=== PATIENT | female | born 1995 | race Caucasian/White ===

== ENCOUNTER 2018-01-06 06:44 | Inpatient (IN) | payer BC, OTHER ==
[~2018-01-06] VITALS: Ht 154.9 cm; Wt 79.0 kg
[~2018-01-06 06:44] MED LIST: AMBIEN10 MG PO
--- NOTE | 2018-01-07 08:42 | PR ---
[facility] [address] [facility] [place], [place] [address] Signed PP Progress Notes Datetime Report Generated by CPN: 01/07/2018 08:41 SUBJECTIVE: [id number] Pain: Within normal limits Nausea/Vomiting: Denies Bowel Movement: Yes Vital Signs: [id number] Vital Signs: Reviewed; Within Normal Limits EXAM: [id number] Cardiovascular: Not Done Respiratory: Not Done Abdomen/Uterus: Abnormal Lochia: Normal Vulva/Perineum: Not Done Breasts: Not Done CVA Tenderness: Not Done Extremities: Normal Incision: Not Applicable Progress: Normal Exam Comments: Fundus firm, NT @ U-1. H/H 11.6/35, WBC 14.7, plat 228k IMPRESSION/PLAN/PROCEDURES: [id number] Impression: Normal progression Plan: Continue present management Progress Notes: Doing well. Will continue current care. Signing Physician: Viji Diggs MD Copies: ~ *Electronically Signed* 01/07/18 0841 VIJI DIGGS MD PATIENT NAME: ERICKA WOODS PROGRESS NOTE DATE OF : [birth year] PHYSICIAN: VIJI DIGGS MD RPT #: [id number] REPORT IS CONFIDENTIAL AND NOT TO BE RELEASED WITHOUT AUTHORIZATION
--- NOTE | 2018-01-08 08:44 | PR ---
[facility] [address] [facility] [place], [place] [address] Signed PP Progress Notes Datetime Report Generated by CPN: 01/08/2018 08:43 SUBJECTIVE: [id number] Pain: Within normal limits Nausea/Vomiting: Denies Bowel Movement: Yes Vital Signs: [id number] Vital Signs: Reviewed; Within Normal Limits EXAM: [id number] Cardiovascular: Not Done Respiratory: Not Done Abdomen/Uterus: Abnormal Lochia: Normal Vulva/Perineum: Not Done Breasts: Not Done CVA Tenderness: Not Done Extremities: Normal Incision: Not Applicable Progress: Normal Exam Comments: Fundus firm, NT @ U-1. IMPRESSION/PLAN/PROCEDURES: [id number] Impression: Normal progression Plan: Discharge Procedures: None Progress Notes: Doing well. She is ready for D/C. Signing Physician: Viji Diggs MD Copies: ~ *Electronically Signed* 01/08/18 0843 VIJI DIGGS MD PATIENT NAME: ERICKA WOODS PROGRESS NOTE DATE OF : [birth year] PHYSICIAN: VIJI DIGGS MD RPT #: [id number] REPORT IS CONFIDENTIAL AND NOT TO BE RELEASED WITHOUT AUTHORIZATION
== END 2018-01-08 13:45 | disposition home or self-care (01) | DRG 775 ==
LOC: FBC 08:10
PROVIDERS: ADMIT Obstetrics & Gynecology
PROC: 10E0XZZ Delivery of Products of Conception, External Approach (ICD-10-PCS; principal; 2018-01-06)
PROC: 0UQMXZZ Repair Vulva, External Approach (ICD-10-PCS; 2018-01-06)
PROC: 10907ZC Drainage of Amniotic Fluid, Therapeutic from Products of Conception, Via Natural or Artificial Opening (ICD-10-PCS; 2018-01-06)
PROC: 3E0S3BZ Introduction of Anesthetic Agent into Epidural Space, Percutaneous Approach (ICD-10-PCS; 2018-01-06)
PROC: 00HU33Z Insertion of Infusion Device into Spinal Canal, Percutaneous Approach (ICD-10-PCS; 2018-01-06)
DX: O43.113 Circumvallate placenta, third trimester (principal); O69.81X0 Labor and delivery complicated by cord around neck, without compression, not applicable or unspecified; O70.0 First degree perineal laceration during delivery; Z3A.39 39 weeks gestation of pregnancy; Z37.0 Single live birth
CPT/HCPCS: 01960; 85027; J2590; J2795; J7120

== ENCOUNTER 2020-10-09 19:30 | Emergency (ER) | payer BC, OTHER ==
[~2020-10-09] VITALS: Ht 154.9 cm; Wt 78.0 kg
[~2020-10-09 19:30] MED LIST changes: +IBUPROFEN600 MG PO; +MONO-LINYAH1 EACH PO; +OXYCODON-ACETA1 EAC2 PO; +TYLENOL325 MG PO; +VENLAFAXINE HCL75 M1 PO
[2020-10-10] MEDS ORDERED: MACROBID 100 M100 MG PO (00:11)
--- NOTE | 2020-10-10 03:16 | EKG ---
[facility] [address] [facility] [place], [place] [address] Signed Sinus rhythm with marked sinus arrhythmia Otherwise normal ECG No previous ECGs available Confirmed by HEDY BREAUX MD ([id number]) on 10/10/2020 3:16:08 AM Electronically Signed By: HEDY BREAUX MD 10/10/20 0316 PATIENT NAME: ERICKA WOODS Electrocardiogram DATE OF : [birth year] PHYSICIAN: HEDY BREAUX MD REPORT #: [id number] REPORT IS CONFIDENTIAL AND NOT TO BE RELEASED WITHOUT AUTHORIZATION
== END 2020-10-10 00:35 | disposition home or self-care (01) ==
LOC: ED 19:30
DX: N39.0 Urinary tract infection, site not specified (principal); Z91.040 Latex allergy status
CPT/HCPCS: 51798; 71045; 81001; 84703; 87077; 87088; 87186; 93005; 93010; 99284-25; A9270

== ENCOUNTER 2024-01-22 05:43 | Day surgery (SDC) | payer OTHER ==
[2024-01-15 11:51] VITALS: BP 125/71
[~2024-01-22] VITALS: Ht 154.9 cm; Wt 59.5 kg
[~2024-01-22 05:43] MED LIST changes: +HYDRALAZINE HCL25 MG PO; +LACTATED RINGER'S 1,000 ML IV SCH; +MACROBID 100 M100 MG PO
[2024-01-22 06:02] VITALS: BP 141/79
[2024-01-22] MEDS ORDERED: LIDOCAINE HCL 1% 5 ML SDV INJ ONE (07:00)
[2024-01-22] MEDS ORDERED: IBLOOD GLUCOSE TEST STRIP 1 EA TEST VI PRN ×2 (07:00→08:45)
[2024-01-22] MEDS ORDERED: fentaNYL citrate 100 MCG/2 ML VIAL ONE (07:20)
[2024-01-22] MEDS ORDERED: KETAMINE in NS 50 MG/5 ML SYR ONE (07:20)
[2024-01-22] MEDS ORDERED: ACETAMINOPHEN 1,000 MG/100 ML VIAL ONE (07:21)
[2024-01-22] MEDS ORDERED: DEXAMETHASONE SOD PHOS 4 MG/ML VIAL ONE (07:21)
[2024-01-22] MEDS ORDERED: LIDOCAINE HCL 2% 5 ML SDV ONE (07:21)
[2024-01-22] MEDS ORDERED: dexmedeTOMIDine HCl 200 MCG/2 ML VIAL ONE (07:21)
[2024-01-22] MEDS ORDERED: propofoL 200 MG/20 ML VIAL ONE (07:21)
[2024-01-22] MEDS ORDERED: MAGNESIUM SULFATE 1 GM/2 ML VIAL ONE (07:21)
[2024-01-22] MEDS ORDERED: ondansetron HCL 4 MG/2 ML VIAL ONE (07:21)
[2024-01-22] MEDS ORDERED: ROCURONIUM BROMIDE 50 MG/5 ML SYR ONE (07:21)
[2024-01-22] MEDS ORDERED: SODIUM CHLORIDE 0.9% 40 ML IV ONE (07:24)
[2024-01-22] MEDS ORDERED: KETOROLAC TROMETHAMINE 30 MG/ML VIAL ONE (08:32)
[2024-01-22] MEDS ORDERED: SUGAMMADEX SODIUM 200 MG/2 ML ML ONE (08:32)
[2024-01-22] MEDS ORDERED: NALOXONE HCL 0.4 MG SYR IV PRN ×2 (08:45→09:00)
[2024-01-22] MEDS ORDERED: droPERidol 5 MG/2 ML VIAL IV PRN (08:45)
[2024-01-22] MEDS ORDERED: MIDAZOLAM HCL 2 MG/2 ML VIAL IV PRN (08:45)
[2024-01-22] MEDS ORDERED: ondansetron HCL 4 MG/2 ML VIAL IV PRN ×2 (08:45→09:00)
[2024-01-22] MEDS ORDERED: fentaNYL citrate 50 MCG/ML SDV IV PRN (08:45)
[2024-01-22] MEDS ORDERED: METOCLOPRAMIDE HCL 10 MG/2 ML SDV IV PRN (09:00)
[2024-01-22] MEDS ORDERED: FAMOTIDINE 20 MG/ 2 ML VIAL IV PRN (09:00)
[2024-01-22] MEDS ORDERED: OXYCODONE/APAP 5/325 TAB PO PRN (09:00)
[2024-01-22] MEDS ORDERED: MORPHINE SULFATE 10 MG/ML VIAL IV PRN (09:00)
[2024-01-22 09:50] VITALS: BP 121/74
--- NOTE | 2024-01-22 09:56 | NUR ---
NOEL 0950: PT IS BACK TO DS FROM PACU. IS AT THE BEDSIDE. CALL LIGHT IN WITH IN REACH. WATER ON BEDSIDE TABLE. DC CRITERIA IS REVIEWED WITH . NO ADDITIONAL NEEDS.
--- NOTE | 2024-01-22 10:07 | NUR ---
01/22/24 1007 Sheets,Irma 0904 PT ARRIVED TO PACU AND WAKES OFF AND ON. PT SHIVERING AND TEARFUL WARM BLACKETS AND AIR GIVEN AND PT REORIENTED TO PACU. PT ON ROOM AIR 0922 PT TEARFUL AND REPORTS CRAMPING PAIN IN LOWER ABD. PAIN MEDICATION GIVEN. 0937 PT WAKES OFF AND ON, MOANING WHEN AWAKE AND REPORTS CRAMPING PAIN 4/10 AND NOT TOLERABLE. PAIN MEDICATION GIVEN, O2 REMAINS ABOVE 90% WHILE ASLEEP. 0950 PT ASLEEP OFF AND ON, PT WAKES AND REPORTS TOLERABLE PAIN. PT RETURNED TO ROOM WITH AT BEDSIDE. ALL QUESTIONS ANSWERED. VSS AND REPORT GIVEN.
[2024-01-22 11:01] VITALS: BP 113/60
--- NOTE | 2024-01-22 11:14 | NUR ---
LE 1100: PT REPORTS PAIN 6/10, SHE WOULD LIKE SOMETHING FOR PAIN. SHE WOULD LIKE XAVIER CRACKERS TO SNACK ON. SHE DOES INDICATE THAT SHE NEEDS TO GET UP AND VOID. SHE IS ASSISTED UP TO THE EDGE OF THE BED, THEN SHE AMBULATES INDEPENDENTLY TO THE BATHROOM WITH STANDBY ASSIST. SHE IS ABLE TO VOID 100MLS OF BLOOD TINGED URINE. SHE AMBULATES BACK TO HER ROOM. INDEPENDENTLY. LE 1113: PT IS GIVEN MORE WATER AND XAVIER CRACKERS, SHE IS TOLERATING THESE WITHOUT ISSUE. CALL LIGHT WITHIN REACH. MOM AT THE BEDSIDE. LEFT TO GO TO [facility] FOR PRESCRIPTIONS.
--- NOTE | 2024-01-22 12:18 | NUR ---
LE 1155: PT REPORTS IMPROVEMENT IN HER PAIN. SHE INDICATES THAT SHE WOULD LIKE TO GO HOME, BUT WOULD LIKE TO USE THE BATHROOM FIRST. SHE AMBULATES INDEPENDENTLY TO AND FROM THE BATHROOM. ONCE BACK TO HER ROOM SHE IS EDUCATED ON HOW TO BEST DRESS HERSELF AND TO OPEN HER CURTAIN WHEN READY. LE 1200: PT AND MOM ARE GIVEN VERBAL AND WRITTEN DC INSTRUCTIONS. QUESTIONS ARE ASKED AND ANSWERED. LE 1205: PT IS DC'D HOME VIA WC, TO PERSONAL VEHICLE. SHE TRANSFERS HERSELF WITHOUT ISSUES.
--- NOTE | 2024-01-23 10:05 | OR ---
[facility] [address] [place], [place] [address] Signed DATE OF OPERATION: 01/22/2024 SURGEON: Leni Barrera DO PREOPERATIVE DIAGNOSES: 1. Abnormal uterine bleeding. 2. Abnormal endometrium on ultrasound. 3. Dysmenorrhea. 4. Desires salpingectomy. POSTOPERATIVE DIAGNOSES: 1. Abnormal uterine bleeding. 2. Abnormal endometrium on ultrasound. 3. Dysmenorrhea. 4. Desires salpingectomy. 5. Endometriosis of the pelvic cul-de-sac, excised or fulgurated completely. PROCEDURES PERFORMED: 1. Laparoscopic excision and fulguration of pelvic endometriosis. 2. Bilateral salpingectomy. 3. Hysteroscopy dilation and curettage. INSTRUCTIONAL MANAGER: Viji Diggs MD. ANESTHESIA: General. ESTIMATED BLOOD LOSS: 15 mL. FLUID: Deficit 80 mL. SPECIMENS: 1. Endometriosis of the pelvic peritoneum. 2. Endometrial curettings. FINDINGS: Normal external genitalia with normal clitoris, urethral meatus, bilateral Henriette's, Electronically Signed By: LENI BARRERA DO (JD) 01/23/24 1005 PATIENT NAME: ERICKA WOODS OPERATIVE REPORT DATE OF : [birth year] REPORT #: [id number] PHYSICIAN: LENI BARRERA DO (JD) PCP: JUSTIN CARDOZO NP REPORT IS CONFIDENTIAL AND NOT TO BE RELEASED WITHOUT AUTHORIZATION [facility] [address] [place], [place] [address], [place] [address] Signed Bartholin's glands. Normal vagina and cervix. On laparoscopy, normal liver, uterus, tubes, ovaries. Endometriosis of the cul-de-sac with powder-burn red lesions noted. These were excised and fulgurated completely. No other endometriosis or other pathology noted in the pelvis. Hemostasis at the end of the procedure. On hysteroscopy, normal and somewhat thin endometrium without polyps or fibroids. COMPLICATIONS: None. INDICATIONS: Ms. Woods is a very pleasant 28-year-old female with history of abnormal bleeding, abnormal endometrium on ultrasound, dysmenorrhea, dyspareunia, and desires of bilateral salpingectomy. I recommended diagnostic laparoscopy with bilateral salpingectomy and hysteroscopy D and C. The patient understands and wished to proceed with the procedure. PROCEDURE IN DETAIL: The patient was taken to the OR. A time-out was performed to confirm correct patient, correct procedure. General anesthesia was adequately established. The patient was prepped and draped in the dorsal lithotomy position with feet in Yellofin stirrups. ICPs were on and running and no preoperative antibiotics or heparin was indicated. A latex-free Dias catheter was inserted. Weighted speculum placed in the vagina and the anterior lip of the cervix was grasped with an Allis clamp. A Hulka uterine manipulator was placed without difficulty. Surgeon's gloves were changed. Attention was turned to the abdomen. The base of the umbilicus was infiltrated with 0.25% Marcaine with epinephrine with low opening pressures noted. Survey of the abdomen and pelvis was performed. A 5 mm medical assistant cardiology ports were placed in the left lower and right lower quadrant under direct visualization. Attention was turned to salpingectomy. The left fallopian tube was elevated and divided along the mesosalpinx using LigaSure device. This was then divided at the cornu without difficulty with excellent hemostasis. The tube was sent to pathology for further evaluation. The process was repeated on the right without difficulty with fulguration of the mesosalpinx and amputation of the tube at the cornu. Attention was returned to the cul-de-sac were endometriosis was noted. A mixture of powder burn and red lesions were noted in the cul-de-sac and these were noted to not be deep infiltrating. The peritoneum was tented with fenestrated laparoscopic graspers and the peritoneum was nicked with surgical roni. The peritoneum was then undermined freeing all endometriosis lesions and excised with the surgical roni. Two areas of the cul-de-sac were excised in this manner. Several other scattered very superficial lesions were noted and these were gently fulgurated with monopolar cautery. Endometriosis samples was sent to pathology for further evaluation. The incisional sites were irrigated and made hemostatic with judicious use of monopolar cautery. Tisseel was then applied to biopsy sites with excellent hemostasis appreciated. Pneumoperitoneum was reduced and trocars removed. Trocar sites were repaired using 3-0 Electronically Signed By: LENI GRACIA) DO MARIANNA 01/23/24 1005 PATIENT NAME: ERICKA WOODS OPERATIVE REPORT DATE OF : [birth year] REPORT #: [id number] PHYSICIAN: LENI BARRERA) PCP: JUSTIN CARDOZO NP REPORT IS CONFIDENTIAL AND NOT TO BE RELEASED WITHOUT AUTHORIZATION [facility] [address] [place] [id number] Signed Guadalupe Brower. Attention was then turned to the pelvis. The Hulka uterine manipulator was removed. The cervix was grasped with the Allis clamp and the cervix gently dilated using Hegar dilators to #7. An operative hysteroscope was then inserted in the cervix and advanced under direct visualization into the uterine cavity. Then, otherwise normal endometrium was noted with no polyps or fibroid. Hydraulic Jack Operator endometrial curettings were obtained using the MyoSure Lite device. The hysteroscope was withdrawn and the Dias catheter was removed. The patient was taken to PACU in good and stable condition. Sponge, needle, and instrument counts correct x2 at the end of the procedure. Dr. Diggs was present and participated in all portions of procedure. DO KARINA Lora/MODL /[id number] Copies: ~ Electronically Signed By: LENI GRACIA) DO MARIANNA 01/23/24 1005 PATIENT NAME: ERICKA WOODS OPERATIVE REPORT DATE OF : [birth year] REPORT #: [id number] PHYSICIAN: LENI BARRERA DO (JD) PCP: JUSTIN CARDOZO NP REPORT IS CONFIDENTIAL AND NOT TO BE RELEASED WITHOUT AUTHORIZATION
--- NOTE | 2024-01-28 11:38 | PATH ---
[facility] [address] [place], [place] [address] Signed SPECIMEN(S): A FALLOPIAN TUBES, BILATERAL SPECIMEN(S): B POSTERIOR CULDESAC/ENDOMETRIOSIS SPECIMEN(S): C ENDOMETRIAL CURETTINGS SPECIMEN SOURCE: A. FALLOPIAN TUBES, BILATERAL B. POSTERIOR CULDESAC/ENDOMETRIOSIS C. ENDOMETRIAL CURETTINGS CLINICAL HISTORY: Abnormal uterine bleeding FINAL PATHOLOGIC DIAGNOSIS: A. Bilateral fallopian tubes, bilateral salpingectomy: - Benign fimbriae and cross sections of fallopian tubes. B. Posterior cul-de-sac, biopsy: - Benign fibroadipose tissue with glands and hemorrhage, suggestive of endometriosis. C. Endometrial curettings, curettage: - Fragments of benign late secretory type endometrium with menstrual-type changes. - Negative for atypia. DDF MICROSCOPIC EXAMINATION: Histologic sections of all submitted blocks are examined by light microscopy. These findings, together with the gross examination, support the pathologic diagnosis. GROSS DESCRIPTION: A. The specimen, labeled and designated "Autery, bilateral fallopian tubes," is received in formalin and consists of two undesignated fallopian tubes. Both show fimbria and violaceus and smooth serosa. The first tube measure 4.7 x 0.7 cm. The second fallopian tube measure 4.5 x 0.7 cm. Sectioning through both fallopian tubes is grossly unremarkable. Cassette Summary: (A1) first fallopian tube, hostess party sales representative sections (A2) second fallopian tube, hostess party sales representative sections B. The specimen, labeled and designated "Autery, posterior cul-de-sac endometriosis," is received in formalin and consists of 2 pieces of irregular shaped fibromembranous and fibroadipose tissue that PATIENT NAME: ERICKA WOODS PATHOLOGY DATE OF : [birth year] REPORT #: [id number] PHYSICIAN: JAM MORLEY PCP: JUSTIN CARDOZO NP REPORT IS CONFIDENTIAL AND NOT TO BE RELEASED WITHOUT AUTHORIZATION [facility] [address] [place], [place] [address] Signed aggregate measure 1.7 x 1.3 x 0.4 cm. Sectioning through the specimen to reveal pink-lai, focally congested tissue. Entirely submitted in (B1). C. The specimen, labeled and designated "Arelis, endometrial curettings," is received in formalin and consists of multiple fragments of soft lai-red tissue and blood measuring 1.5 x 0.7 x 0.1 cm in aggregate. Entirely submitted in (C1). JS (under the direct supervision of a pathologist) The Gross Description was prepared using a voice recognition system. The report was reviewed for accuracy; however, sound-alike word errors, addition and/or deletions may occur. If there is any question about this report, please contact Client Services. ADDITIONAL NOTES: Immunohistochemical and/or in situ hybridization studies if performed in this case included appropriate positive controls that reacted as expected. This test was developed and its performance characteristics determined by [facility]. It has not been cleared or approved by the U.S. Food and Drug Administration. The FDA has determined that such clearance or approval is not necessary. This test is used for clinical purposes. It should not be regarded as investigational or for research. [facility] is certified under the Clinical Laboratory Improvement Amendments of 1988 (CLIA) as qualified to perform high complexity clinical laboratory testing. PERFORMING LABORATORY: Technical component was performed by [facility], [address] [place] [address] (CLIA# [id number]). Professional interpretation was performed by [facility], [facility] [place] [address] (CLIA#: [id number]). Diagnostician: Geremias Toney DO Pathologist Electronically Signed 01/28/2024 Copies: ~ PATIENT NAME: ERICKA WOODS PATHOLOGY DATE OF : [birth year] REPORT #: [id number] PHYSICIAN: [facility] PCP: JUSTIN CARDOZO NP REPORT IS CONFIDENTIAL AND NOT TO BE RELEASED WITHOUT AUTHORIZATION
== END 2024-01-22 12:05 | disposition home or self-care (01) ==
LOC: OPS 05:43 → DS 05:43 → OPS 07:30
PROVIDERS: ATTEND Obstetrics & Gynecology
PROC: 0UDB8ZZ Extraction of Endometrium, Via Natural or Artificial Opening Endoscopic (ICD-10-PCS; 2024-01-22)
PROC: 0UB94ZZ Excision of Uterus, Percutaneous Endoscopic Approach (ICD-10-PCS; principal; 2024-01-22 07:30)
PROC: 0UT74ZZ Resection of Bilateral Fallopian Tubes, Percutaneous Endoscopic Approach (ICD-10-PCS; 2024-01-22 07:30)
DX: N80.319 Endometriosis of the anterior cul-de-sac, unspecified depth (principal); N94.6 Dysmenorrhea, unspecified; Z30.2 Encounter for sterilization; Z87.891 Personal history of nicotine dependence
CPT/HCPCS: 00840; 88302; 88305; J0131; J1100; J1885; J2001; J2405; J2704; J3010; J3475; J3490; J7121

== ENCOUNTER 2024-06-03 21:18 | Emergency (ER) | payer OTHER ==
[~2024-06-03] VITALS: Ht 154.9 cm; Wt 59.4 kg
[~2024-06-03 21:18] MED LIST changes: -LACTATED RINGER'S 1,000 ML IV SCH
[2024-06-03 21:54] LABS: BILIRUBIN, URINE NEGATIVE (negative); BLOOD/HGB, URINE LARGE (Negative); KETONE, URINE NEGATIVE (Negative); LEUK ESTERASE, URINE LARGE (negative); NITRITE, URINE NEGATIVE (negative)
[2024-06-03 21:59] LABS: CASTS, URINE NONE SEEN \\lpf; CRYSTALS, URINE NONE SEEN (0-1+); EPITHELIAL CELLS, URINE SQUAMOUS 1+ /lpf (0-1+); WHITE BLOOD CELLS, URINE >50 /HPF (0-5)
[2024-06-03 22:00] LABS: BACTERIA, URINE 2+ /hpf (negative); COLLECTION TYPE, URINE CLEAN CATCH; REFLEX CULTURE, URINE Yes (No)
[2024-06-03] MEDS ORDERED: MACROBID 100 M100 MG PO (22:11)
[2024-06-03] MEDS ORDERED: NITROFURANTOIN MONOHYD MACROCR 100 MG HOME.PACK PO ONE (22:15)
[2024-06-03 22:24] VITALS: BP 104/58
== END 2024-06-03 22:25 | disposition home or self-care (01) ==
LOC: ED 21:18
PROVIDERS: Family Medicine
DX: N39.0 Urinary tract infection, site not specified (principal); R31.9 Hematuria, unspecified; Z91.040 Latex allergy status; Z79.899 Other long term (current) drug therapy
CPT/HCPCS: 81001; 87077; 87088; 87186; 99283

== ENCOUNTER 2025-03-16 08:48 | Emergency (ER) | payer OTHER ==
[~2025-03-16] VITALS: Ht 154.9 cm; Wt 58.3 kg
[2025-03-16 09:02] LABS: BLOOD/HGB, URINE SMALL (Negative); KETONE, URINE NEGATIVE (Negative); LEUK ESTERASE, URINE SMALL (negative); NITRITE, URINE NEGATIVE (negative)
[2025-03-16 09:13] LABS: BACTERIA, URINE NONE SEEN /hpf (negative); CASTS, URINE NONE SEEN \\lpf; CRYSTALS, URINE NONE SEEN (0-1+); EPITHELIAL CELLS, URINE 0 /lpf (0-1+); REFLEX CULTURE, URINE No (No)
[2025-03-16] MEDS ORDERED: CEFDINIR300 MG PO (09:25)
[2025-03-16 09:42] VITALS: BP 125/74
== END 2025-03-16 09:43 | disposition home or self-care (01) ==
LOC: ED 08:48
PROVIDERS: Emergency Medicine
DX: N39.0 Urinary tract infection, site not specified (principal)
CPT/HCPCS: 81001; 99283